=== PATIENT | female | born 1945 | race Hispanic/Latino ===

== ENCOUNTER 2019-09-27 17:50 | Emergency (ER) | payer OTHER ==
[2019-09-27] MEDS ORDERED: ACETAMINOPHEN-CODEINE 300/30MG TAB ONE (18:37)
[2019-09-27] MEDS ORDERED: KETOROLAC TROMETHAMINE 15MG/ML ONE (18:37)
[2019-09-27] MEDS ORDERED: DEXAMETHASONE SOD PHOSPHATE 10MG/ML 1ML VIAL ONE (18:37)
== END 2019-09-27 20:56 | disposition home or self-care (01) ==
LOC: EDH 17:50
DX: M17.12 Unilateral primary osteoarthritis, left knee (principal); E11.9 Type 2 diabetes mellitus without complications; I10 Essential (primary) hypertension; E03.9 Hypothyroidism, unspecified; Z79.899 Other long term (current) drug therapy
CPT/HCPCS: 73562; 96372 ×2; 99283; J1100; J1885